=== PATIENT | male | born 1990 | race Two or more races ===

== ENCOUNTER 2019-03-19 20:36 | Emergency (ER) | payer OTHER ==
[~2019-03-19] VITALS: Ht 180.3 cm; Wt 83.9 kg
[~2019-03-19 20:36] MED LIST: AMOX1TAB12 PO; TRAM1TAB98 PO
== END 2019-03-20 01:27 | disposition home or self-care (01) ==
LOC: ER 20:36
DX: R07.89 Other chest pain (principal); F06.4 Anxiety disorder due to known physiological condition